=== PATIENT | female | born 1950 | race Caucasian/White ===

== ENCOUNTER 2022-05-09 07:08 | Emergency (ER) | payer MEDICARE, BC, SELFPAY ==
[2022-05-09 07:36] VITALS: BP 145/73; PULSE 79; RESP 16; TEMP 36.5; O2SAT 100; BMI 22.6
[2022-05-09 07:45] VITALS: PULSE 76
[2022-05-09 08:46] LABS: Basophils Percent Auto 0.4 % (0.0-3.0); Eosinophils Percent Auto 2.4 % (0.0-7.0); Hematocrit 38.1 % (33.0-51.0); Hemoglobin* 12.8 gm/dL (12.0-16.0); Lymphocytes Percent Auto 8.5 % (20-44); Mean Corpuscular HGB Conc 34 gm/dL (32-36); Mean Corpuscular Hemoglobin 31 pg (26-34); Mean Corpuscular Volume 92 fL (80-100); Monocytes Percent Auto 11.6 % (0.0-11.0); Neutrophils Percent Auto 76.2 % (42.0-72.0); Platelet Count* 251 K/uL (140-440); RDW Coefficient of Variation % 12.6 % (11.5-15.5); Red Blood Count 4.16 m/uL (4.00-5.20); White Blood Count* 11.54 K/uL (4.50-11.00)
[2022-05-09 09:01] LABS: Chloride* 105 mmol/L (96-114); Potassium* 4.6 mmol/L (3.6-5.1); Sodium* 139 mmol/L (135-149)
[2022-05-09 09:03] LABS: Creatinine* 0.6 mg/dL (0.5-1.5); Est. Creatinine Clearance* 44.41; Estimated Glomerular Filt Rate 94 ml/min
[2022-05-09 09:04] LABS: Blood Urea Nitrogen* 19 mg/dL (7-30); Carbon Dioxide* 30 mmol/L (20-32); Glucose* 91 mg/dL (60-115)
[2022-05-09 09:05] LABS: Calcium* 8.9 mg/dL (8.4-10.6)
[2022-05-09 09:07] LABS: C Reactive Protein* 5.3 mg/dL (0.5-1.0)
--- NOTE | 2022-05-09 09:15 | ED_ITS ---
HPI - General Adult General Chief complaint: Extremity Pain/Injury, Upper Stated complaint: right hand pain,swollen Time Seen by Provider: 05/09/22 08:08 History of Present Illness HPI narrative: 72-year-old female coming in today complaining hand swelling. She noticed it 2 days ago. She states that the hand felt uncomfortable and then started swelling and became hot. She denies any systemic symptoms such as fever, chills, nausea, vomiting. No weakness or rigors. She states that she had a rash about a week ago over her whole body that was treated with steroids. She also had a lesion on the center of that right palm that eventually got better. She is uncertain whether the swelling is associated with the rash but the rash has cleared. She denies any other joint swelling. She denies any history of gout. Related Data Home Medications Medication Instructions Recorded Confirmed amlodipine 2.5 mg tablet mg 05/09/22 celecoxib 200 mg capsule mg 05/09/22 clobetasol 0.05 % topical ointment topical 05/09/22 ibuprofen 05/09/22 Previous Rx's Medication Instructions Recorded cephalexin 500 mg capsule 500 mg PO TID 7 days #21 caps 05/09/22 Allergies Allergy/AdvReac Type Severity Reaction Status Date / Time No Known Drug Allergies Allergy Verified 05/09/22 07:40 Review of Systems Status of ROS: Reports: 10 or more systems reviewed and unremarkable except as noted in History and below [facility] Social History Smoking Status: Never smoker How often do you have a drink containing alcohol: never AUDIT-C Alcohol total score: 0 Non-prescribed substance use: denies use Exam Narrative: Exam Narrative: Well-nourished well-developed patient in no acute distress. Alert and oriented. Answers questions appropriately. Mood and affect are appropriate. Thoughts are goal oriented and rational. No tangential or magical thinking noted. Patient speaks in full sentences without needing to catch their breath. Does not appear ill or toxic. HEENT: Normocephalic atraumatic. Pupils are equally round reactive to light. Extraocular muscles are intact. Conjunctivae are moist without any icterus noted. Extremities: Right dorsal surface of the hand is quite swollen. The hand is red and very hot to touch. She can move at the wrist and at the MCP joints with mild discomfort. She has no tenderness in the palm of the hand. She has no erythema going up the arm. She has a normal radial pulse. Const: Vital Signs, click to edit/add: Vital Signs - 24 hr 05/09/22 07:36 Temperature 97.7 F Pulse Rate [Right Pulse Oximeter] 79 Respiratory Rate 16 Blood Pressure [Le ft Upper Arm] 145/73 H Pulse Oximetry 100 Oxygen Delivery Me thod Room Air Course Course Hospital Course: Did check some lab work today including a CRP which was elevated at just over 5. Vital Signs Vital signs: Initial Vital Signs Temperature 97.7 F 05/09/22 07:36 Temperature Source Temporal Artery Scan 05/09/22 07:36 Pulse Rate 79 05/09/22 07:36 Respiratory Rate 16 05/09/22 07:36 Blood Pressure 145/73 H 05/09/22 07:36 Blood Pressure Mean 97 05/09/22 07:36 Blood Pressure Position Sitting 05/09/22 07:36 Pulse Oximetry 100 05/09/22 07:36 Oxygen Delivery Method 05/09/22 07:36 Vital Signs Temperature 97.7 F 05/09/22 07:36 Pulse Rate 79 05/09/22 07:36 Respiratory Rate 16 05/09/22 07:36 Blood Pressure 145/73 H 05/09/22 07:36 Pulse Oximetry 100 05/09/22 07:36 Oxygen Delivery Method 05/09/22 07:36 Temperature 97.7 F 05/09/22 07:36 Pulse Rate 79 05/09/22 07:36 Respiratory Rate 16 05/09/22 07:36 Blood Pressure 145/73 H 05/09/22 07:36 Pulse Oximetry 100 05/09/22 07:36 Oxygen Delivery Method 05/09/22 07:36 Medical Decision Making MDM Narrative Medical decision making narrative: Hand swelling, pain and erythema consistent with cellulitis. Differential diagnosis does include a septic wrist joint however given the distribution of the erythema and pain I do not think that the infection is confined to the wrist but rather appears to be more consistent with cellulitis. Did give her a dose of IM Rocephin in the ED today, and she will be sent home with oral antibiotics and close follow-up. Medical Records Medical records reviewed: Yes I reviewed the patient's medical records Lab Data Lab results reviewed: Yes I reviewed the patient's lab results Labs: Lab Results 05/09/22 05/09/22 Range/Units 08:30 08:30 WBC 11.54 H (4.50-11.00) K/uL RBC 4.16 (4.00-5.20) m/uL Hgb 12.8 (12.0-16.0) gm/dL Hct 38.1 (33.0-51.0) % MCV 92 (80-100) fL MCH 31 (26-34) pg MCHC 34 (32-36) gm/dL RDW Coeff of [place]etta 12.6 (11.5-15.5) % Plt Count 251 (140-440) K/uL Neut % (Auto) 76.2 H (42.0-72.0) % Lymph % (Auto) 8.5 L (20-44) % [place] % (Auto) 11.6 H (0.0-11.0) % Eos % (Auto) 2.4 (0.0-7.0) % Baso % (Auto) 0.4 (0.0-3.0) % Neut # (Auto) 8.80 H (1.7-7.0) K/uL Lymph # (Auto) 1.00 (0.90-2.90) K/uL [place] # (Auto) 1.30 H (0.00-0.90) K/UL Eos # (Auto) 0.30 (0.00-0.50) K/uL Baso # (Auto) 0.00 (0.00-0.30) K/uL Abs Immat Gran (auto) 0.10 (0.00-0.30) K/uL Sodium 139 (135-149) mmol/L Potassium 4.6 (3.6-5.1) mmol/L Chloride 105 (96-114) mmol/L Carbon Dioxide 30 (20-32) mmol/L BUN 19 (7-30) mg/dL Creatinine 0.6 (0.5-1.5) mg/dL Estimated Creat Clear 44.41 Estimated GFR 94 ml/min Glucose 91 (60-115) mg/dL Calcium 8.9 (8.4-10.6) mg/dL C-Reactive Protein 5.3 H (0.5-1.0) mg/dL Discharge Plan Discharge Clinical Impression: Cellulitis Patient Disposition: Home, Self-Care Condition: Stable Additional Instructions: Take all antibiotics as prescribed. Okay to use ibuprofen or Tylenol as needed for discomfort. If you are not seeing improvement in the next 24-48 hours, return to the emergency room. You should follow-up with your primary care provider on Thursday if you are improving over the weekend. Prescriptions: New cephalexin 500 mg capsule 500 mg PO TID 7 Days Qty: 21 0RF No Action celecoxib 200 mg capsule Label Comments: TAKE 1 CAPSULE (200 MG) BY MOUTH 2 TIMES DAILY WITH MEALS. amlodipine 2.5 mg tablet Label Comments: TAKE ONE TABLET BY MOUTH (2.5MG) ONCE DAILY clobetasol 0.05 % ointment TOPICAL Label Comments: APPLY TO PALM ONE TO TWO TIMES DAILY FOR UP TO 2 WEEKS. ibuprofen Follow Up/Referrals: Michelle Limon DO [Primary Care Provider] - Stand Alone [facility] Inst[facility]
[2022-05-09 09:22] LABS: Slide Review Reflex No
[2022-05-09] MEDS: LIDOCAINE 1% 5 ml (pf) 5 ML VIAL IM (09:38)
[2022-05-09] MEDS: cefTRIAXone 1 GM VIAL IM (09:38)
== END 2022-05-09 09:55 | disposition home or self-care (01) ==
PROVIDERS: Emergency Provider Family Medicine; PCP Family Medicine
DX: L03.113 Cellulitis of right upper limb (principal)
CPT/HCPCS: 36415; 80048; 85025; 86140; 96372; 99283; 99284; J0696

== ENCOUNTER 2022-09-15 10:33 | Emergency (ER) | payer MEDICARE, BC, SELFPAY ==
[2022-09-15] VITALS (22 sets, daily range): BP systolic 133–177; BP diastolic 69–94; PULSE 75–90; RESP 20; TEMP 36.9; O2SAT 94–100; BMI 22.8
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
--- NOTE | 2022-09-15 11:15 | CRLHL7_ITS ---
For Patients: As a result of the Century Cures Act, medical imaging exams and procedure reports are released immediately into your electronic medical record. You may view this report before your referring provider. If you have questions, please contact your health care provider. Indication: VERTIGO Technique: CT of the head without contrast. Coronal and sagittal reformats. Bone and soft tissue windows. Comparison: No prior studies available for comparison at this institution. Findings: No acute intracranial hemorrhage or extra-axial collection. No evidence of acute cortical infarction. No mass effect or midline shift. Normal cerebral volume. The ventricles are normal in size, shape and contour. There is normal cramer and white matter differentiation. The orbital contents are normal. No calvarial fractures. No lytic or sclerotic osseous lesions within the calvarium or skull base. Scalp and other imaged soft tissue structures are normal. Mastoid air cells are clear. Paranasal sinuses are well aerated. Small retention cyst versus polyp in the left maxillary sinus. Leftward deviation of the nasal septum. Ivonne bullosa of the right middle turbinate. Impression: No acute intracranial abnormality. Please note that all CT scans at this facility use dose modulation, iterative reconstruction, and/or weight-based dosing when appropriate to reduce radiation dose to as low as reasonably achievable. Dictated by Isai Schaefer MD @ 09/15/2022 12:22:42 PM (Electronically Signed)
--- NOTE | 2022-09-15 11:15 | CRLHL7_ITS ---
For Patients: As a result of the Century Cures Act, medical imaging exams and procedure reports are released immediately into your electronic medical record. You may view this report before your referring provider. If you have questions, please contact your health care provider. INDICATION: Lumpiness in legs TECHNIQUE: Ultrasound venous duplex lower extremity bilateral. Compression venous exam was performed using babcock-scale, color Doppler, and spectral Doppler imaging. COMPARISON: None. FINDINGS: Sonographic imaging demonstrates the common femoral, deep femoral, superficial femoral, popliteal, posterior tibial and greater saphenous veins to be fully compressible with normal color Doppler blood flow in both lower extremities. There is demonstration of a prominent Gunter cyst within the right popliteal fossa measuring 4.5 x 0.6 x 1.9 centimeters. IMPRESSION: No evidence of deep venous thrombosis. Small Gunter`s cyst in the right popliteal fossa. Dictated by Silverio Cantrell MD @ 09/15/2022 2:37:23 PM (Electronically Signed)
[2022-09-15] MEDS: 0.9 % SODIUM CHLORIDE 1000 ml 1,000 ML IV (11:47)
[2022-09-15 11:54] LABS: Basophils Absolute Auto 0.06 K/uL (0.00-0.30); Eosinophils Absolute Auto 0.16 K/uL (0.00-0.50); Eosinophils Percent Auto 2.7 % (0.0-7.0); Hemoglobin* 12.3 gm/dL (12.0-16.0); Immature Granulocytes Abs Auto 0.01 K/uL (0.00-0.30); Immature Granulocytes Pct Auto 0.2 %; Lymphocytes Percent Auto 19.9 % (20-44); Mean Corpuscular HGB Conc 33 gm/dL (32-36); Mean Corpuscular Hemoglobin 30 pg (26-34); Mean Corpuscular Volume 89 fL (80-100); Monocytes Percent Auto 9.7 % (0.0-11.0); Neutrophils Percent Auto 66.5 % (42.0-72.0); Platelet Count* 295 K/uL (140-440); RDW Coefficient of Variation % 12.6 % (11.5-15.5); Red Blood Count 4.15 m/uL (4.00-5.20); White Blood Count* 5.87 K/uL (4.50-11.00)
[2022-09-15 11:55] LABS: Slide Review Reflex No
[2022-09-15 12:07] LABS: Albumin* 4.1 g/dL (3.3-5.0); Chloride* 106 mmol/L (96-114); Sodium* 140 mmol/L (135-149)
[2022-09-15 12:09] LABS: Creatinine* 0.6 mg/dL (0.5-1.5); Est. Creatinine Clearance* 42.62; Estimated Glomerular Filt Rate 94 ml/min
[2022-09-15 12:10] LABS: Alanine Aminotransferase* 59 U/L (4-35); Alkaline Phosphatase* 73 U/L (40-150); Aspartate Amino Transferase* 44 U/L (12-35); Bilirubin Total* 0.5 mg/dL (0.1-1.5); Blood Urea Nitrogen* 17 mg/dL (7-30); Carbon Dioxide* 29 mmol/L (20-32); Total Protein* 6.4 g/dL (6.0-8.3)
[2022-09-15 12:11] LABS: Calcium* 8.8 mg/dL (8.4-10.6); Glucose* 81 mg/dL (60-115)
[2022-09-15 12:15] LABS: C Reactive Protein* < 0.5 mg/dL (0.5-1.0)
[2022-09-15 12:34] LABS: PCR FLU A Negative PCR FLU A (Negative); PCR FLU B Negative PCR FLU B (Negative); PCR RSV Negative PCR RSV (Negative)
[2022-09-15 12:35] LABS: SARS PCR* Negative SARS-CoV-2 (Negative)
[2022-09-15 12:45] LABS: Erythrocyte SedimentationRate* 7 mm/hr (2-20)
[2022-09-15 15:09] LABS: Appearance Urine Clear (Clear); Bilirubin Urine Negative (Negative); Blood Urine Trace-lysed (Negative); Color Urine Yellow (Yellow); Glucose Urine Negative (Negative); Ketones Urine Negative (Negative); Leukocyte Esterase Urine Negative (Negative); Nitrite Urine Negative (Negative); Protein Urine 1+ (Negative); Urobilinogen Urine 0.2 (0.2-1.0); pH Urine 7.5 (5.0-8.5)
[2022-09-15 15:17] LABS: RBC Urine 0-2 (0-2); Squamous Epithelial Cell Urine Few (None-Few); WBC Urine 0-2 (0-5)
--- NOTE | 2022-09-15 18:08 | ED.NURSE ---
Therapy referral form filled out by Dr. Moser and faxed to [facility], attn: Dr. Limon and to [facility] Medical Records.
== END 2022-09-15 15:25 | disposition home or self-care (01) ==
PROVIDERS: Emergency Provider Family Medicine; PCP Family Medicine
DX: H81.10 Benign paroxysmal vertigo, unspecified ear (principal); Z13.0 Encounter for screening for diseases of the blood and blood-forming organs and certain disorders involving the immune mechanism
CPT/HCPCS: 36415; 70450; 80053; 81001; 85025; 85651; 86140; 87502; 87634; 87635; 93970; 94761; 99284; J7030

== ENCOUNTER 2022-09-30 08:43 | Outpatient (RCR) | payer MEDICARE, BC, SELFPAY ==
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
== END 2023-04-09 23:59 | disposition home or self-care (01) ==
PROVIDERS: PCP Family Medicine; Visit Provider Family Medicine
DX: H81.12 Benign paroxysmal vertigo, left ear (principal); Z51.89 Encounter for other specified aftercare
CPT/HCPCS: 95992; 97162

== ENCOUNTER 2022-11-07 07:23 | Outpatient (CLI) | payer MEDICARE, BC, SELFPAY | END 2022-11-07 07:24 | disposition home or self-care (01) | PROVIDERS: PCP Family Medicine; Visit Provider Family Medicine | DX: M17.11 Unilateral primary osteoarthritis, right knee (principal); M25.561 Pain in right knee | CPT/HCPCS: 64454 ==

== ENCOUNTER 2022-12-02 12:08 | Outpatient (CLI) | payer MEDICARE, BC, SELFPAY | END 2022-12-02 12:09 | disposition home or self-care (01) | LOC: INJ CL 12:09 | PROVIDERS: PCP Family Medicine; Visit Provider Family Medicine | DX: M17.11 Unilateral primary osteoarthritis, right knee (principal); G89.29 Other chronic pain; M25.561 Pain in right knee | CPT/HCPCS: 64624; J2250; J3010 ==

== ENCOUNTER 2022-12-23 08:06 | Outpatient (CLI) | payer MEDICARE, BC, SELFPAY | END 2022-12-23 08:07 | disposition home or self-care (01) | PROVIDERS: PCP Family Medicine; Visit Provider Family Medicine | DX: M54.16 Radiculopathy, lumbar region (principal); M51.36 Other intervertebral disc degeneration, lumbar region | CPT/HCPCS: 62323; J0702; Q9966 ==

== ENCOUNTER 2025-04-01 09:36 | Emergency (ER) | payer MEDICARE, BC, SELFPAY ==
--- OUTSIDE RECORDS SUMMARY | 2025-04-01 09:38 | XMS_ITS | Clinical Summary ---
Author Organization [facility] Address [address] [place] [id number] Care Team Providers Care [employer] Manager Name Role Phone Grover Muniz MD Unavailable [phone] Michelle Limon DO Primary Care Provider [phone] Allergies Active Allergy Reactions Criticality Noted Date Comments Aspirin GI Upset 08/22/2019 Garlic Vomiting High 05/13/2021 Medications clobetasol 0.05% (TEMOVATE 0.05% OINTMENT) 0.05 % ointmentIndica tions:Chronic eczema Apply to palm 1-2 x's day for up to 2 weeks. 60 g 08/28/20 21 Active acetaminophen (TYLENOL) 325 mg tabletIndicati ons:Thickened endometrium Take 1-2 Tablets (325-650 mg) by mouth every 4 hours if needed (mild pain). Max acetaminophen dose: 4000mg in 24 hrs. 100 Tablet 09/08/20 22 Active lidocaine 4 % topical patch Apply on dry, clean, hairless skin every 24 hours. Apply to intact skin to cover most painful area for max 12hr per 24hr period. Active DULoxetine (CYMBALTA) 60 mg Delayed-releas e capsuleIndicat ions:Arthralgi a, unspecified joint,Stress Take 1 Capsule (60 mg) by mouth once daily. 90 Capsule 3 08/18/20 23 Active cyclobenzaprin e (FLEXERIL) 5 mg tabletIndicati ons:Muscle spasm Take 1/2-1 tablet before bed as need for muscle pain. 30 Tablet 04/21/20 24 Active methylPREDNISo lone (Medrol, New,) 4 mg tabletIndicati ons:Acute right-sided low back pain with right-sided sciatica Take by mouth as instructed per packaging. 21 Tablet 04/21/20 24 Active omeprazole 20 mg tabletIndicati ons:Chronic cough Take 1 Tablet (20 mg) by mouth once daily before a meal. 90 Tablet 04/21/20 24 Active amLODIPine (NORVASC) 2.5 mg tabletIndicati ons:HTN (hypertension) TAKE 1 TABLET (2.5 MG) BY MOUTH ONCE DAILY. 90 Tablet 2 06/28/20 24 Active rosuvastatin 5 mg tabletIndicati ons:Agatston CAC score 100-199 TAKE 1 TABLET (5 MG) BY MOUTH AT BEDTIME. 90 Tablet 03/17/20 25 Active rosuvastatin (CRESTOR) 5 mg tabletIndicati ons:Agatston CAC score 100-199 Take 1 Tablet (5 mg) by mouth at bedtime. 90 Tablet 3 12/15/19 24 2024 Discontinued Active Problems Problem Noted Date Diagnosed Date Depression, recurrent 08/06/2023 Thickened endometrium 09/08/2022 Osteopenia 08/11/2018 Overview (09/10/2018): Osteopenia 08/2018, repeat 3-5 years Dextroscoliosis 08/11/2018 Hip pain 10/31/2014 Overview (10/31/2014): Oct 2014: Greater Trochanteric Bursa injection. Displacement of lumbar inter vertebral disc without myelopathy 04/22/2012 Left sided sciatica 04/22/2012 DDD (degenerative disc disease), lumbar 04/07/20 12 Overview (04/07/2012): Multilevel Bunion 10/02/2010 Knee pain 10/01/2010 Shingles 10/01/2010 Resolved Problems Problem Noted Date Diagnosed Date Resolved Date Reactive inflammatory arthritis 08/06/2023 09/28/2023 Encounters Date Type Department Care Team Description 03/15/2025 Refill [facility] [address] [place] [address] Michelle Limon DO Refill Request (Rosuvastatin) from Last 3 Months Immunizations Immunization Administration Dates Next Due COVID-19 vaccine (LoyalBlocks-J&J) PF, MDV Influenza, High-dose Quadriv alent Inactivated 08/04/2022,06/27/2021,06/29/2020 Influenza, IIV3 (Age >=3 years) 09/23/2013,09/08 Influenza, Inactivated AIIV4 (Age 65+ Years) Preserv Free 08/18/2023 Influenza, Inactivated IIV3 (Age 65+ Years) Preserv Free 08/22/2019,08/11/2018 Pneumococcal Poly,23-Valent (Pneumovax) 04/26/20 13 Pneumococcal conj 13-Valent (Prevnar 13) 015 Rabavert 03/01/2020,02/16/2020 Td (Age >=7 Years) 02/19/2005 Tdap 04/08/2023,09/08/2012 Zoster (Shingrix-RZV, recombinant) 03/01/2019, Family History Medical History Relation Name Comments Cancer Brother Maldonado bile duct cance r Arthritis Father Diabetes Mother Heart Disease Mother Hypertension Mother Other Mother Macular degener ation Lung cancer Sister Radha Cancer-breast No Family History Cancer-colon No Family History Relation Name Status Comments Brother Maldonado Father (Age 81) dementia Mother Sister Radha Social History Tobacco Use Types Packs/Day Years Used Date Smoking Tobacco: Never Passive Smoke Exposure: Never Smokeless Tobacco: Never Tobacco Cessation:Counseling Given: Not Answered Alcohol Use Standard Drinks/Week Comments No 0 (1 standard drink = 0.6 oz pur e alcohol) PHQ-2 Answer Date Recorded PHQ-2 TOTAL SCORE 0 08/18/2023 Social Connections Answer Date Recorded Frequency of Communication with Friends and Fami ly 0 07/14/2023 Financial Resource Strain Answer Date R ecorded Difficulty of Paying Living Expenses 3 07/14/2023 Difficulty of Paying Living Expenses Not on file 07/14/2023 Food Insecurity Answer Date Recorded Do you worry your food will run out before you are able to buy more? 1 07/14/2023 Transportation Needs Answer Date Record ed Lack of Transportation (Medical) 1 07/14/2023 Housing Stability Answer Date Recorded What is your housing situation today? 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 Gender Identity Not on file Sexual Orientation Not on file Occupation Industry Job Start Date Job End Date [employer] Not on file Not on file Not on file Obstetrics History Para Term AB IAB SAB Ectopic Multiple Livin g Live Births 0 0 0 0 0 0 0 0 0 0 Last Filed Vital Signs Vital Sign Reading Time Taken Comments Blood Pressure 126/55 04/21/2024 2:13 PM CDT Pulse 76 04/21/2024 2:13 PM CDT Temperature 36.7 C (98.1 F) 08/04/2023 8:34 AM FIELD SALES ENGINEER Respiratory Rate 18 09/08/2022 1:30 PM FIELD SALES ENGINEER Oxygen Saturation 96% 04/21/2024 2:13 PM CDT Inhaled Oxygen Concentration - - Weight 67.7 kg (149 lb 4.8 oz) 10/20/2023 12:55 PM FIELD SALES ENGINEER Height 161.3 cm (5' 3.5) 08/18/2023 8:21 AM FIELD SALES ENGINEER Body Mass Index 26.03 08/18/2023 8:21 AM FIELD SALES ENGINEER Plan of Treatment Upcoming Encounters Date Type Department Care Team (Late st Contact Info) Description 05/09/2025 8:20 AM CDT Office Visit [facility] [address] [place] [address] Michelle Limon DO [address] [place] [address] Health Maintenance Due Date Last Done Comments RSV vaccine for adults or (1 - 1-dose 75+ series) 01/03/2023 COVID-19 vaccine series ( season) 2024 04/01/2022, 08/06/2021, 12/01/2020 BMI (ht and wt on same day) for age 18+ 08/18/2024 08/18/2023, 10/08/2022, 08/12/2022, Additional history exists Medicare Wellness for age 65+ 08/18/2024 08/18/2023, 10/17/2014, 04/26/2013 Depression screening for age 12+ 08/19/2024 08/19/2023, 08/18/2023, 08/18/2023, Additional history exists Influenza Vaccine (#1) 2025 , 08/22/2019, 08/11/2018, Additional history exists Tetanus booster 04/08/2033 04/08/2023, 08/21, 02/19/2005 Pneumococcal series for age 50+ Completed 10/17/2014, 04/26/2013 Zoster (shingles) series for age 50+ Completed 03/01/2019, 11/15/2018 DEXA/DXA scan for age 65+ Completed 2022, 08/26/2018, 04/28/2013 Hepatitis C screening for age 18-79 Completed 08/18/2023 Hepatitis B series for 19+ Aged Out N o longer eligible based on patient's age to complete this topic Procedures Procedure Name Priority Date/Time Associated Diagnosis Comments XR DXA BONE DENSITY 2 SITES AXIAL Routine 08/18/2023 9:51 AM FIELD SALES ENGINEER Osteopenia, unspecified location Other specified disorders of bone density and structure, other site ANTI HCV Routine 08/18/2023 9:50 AM FIELD SALES ENGINEER Need for hepatitis C screening test from Last 3 Months or Most Recently Relevant to Health Maintenance Results * (ABNORMAL) XR DXA BONE DENSITY 2 SITES AXIAL (08/18/2023 9:51 AM FIELD SALES ENGINEER) Anatomical Region Laterality Modality Spine, HIPS, HIPL, HIPR Other Impressions 08/19/2023 9:11 AM FIELD SALES ENGINEER Osteopenia. RECOMMENDATIONS: The National Osteoporosis Foundation recommends pharmacologic treatment for patients with T-scores of -2.5 or less, patients with prior history of fragility fractures, or patients with 10-year probability of greater than 3% at hips or greater than 20% of suffering major osteoporotic fractures. Recommend continued optimization of calcium and vitamin D intake through dietary means and/or supplementation and regular exercise. Consider pharmacologic therapy for osteopenia with increased fracture risk. Follow-up bone density reading in 2 years if therapy initiated to assess therapeutic efficacy. Alexandrea Joiner PA-C [facility] 08/19/2023 Narrative 08/19/2023 9:11 AM FIELD SALES ENGINEER For Patients: Results are automatically released to your [employer] App ([employer]) account once available, in compliance with federal regulations. This means that you may see your results before your provider has had a chance to review them. Please allow 2-3 business days for your provider to comment on the results. XR DXA Bone Mineral Density (BMD) EXAM LOCATION: [facility] [address] [facility] [address] PATIENT NAME: Cassandra Hall DATE OF : 1950 EXAM DATE: 08/18/2023 REQUESTING PROVIDER: Michelle Limon DO GENDER AT : female HEIGHT: 5' 3.5 (08/18/2023) WEIGHT: 145 lb (08/18/2023) MENOPAUSAL STATUS: Postmenopausal RACE/ETHNICITY: White RISK FACTORS: Height Loss (2 inches or more) and White Race CURRENT MEDICATION FOR BONE LOSS: NONE INDICATION: Follow-up of existing osteopenia COMPARISON DATE(S): 2018 DXA scans are compared to prior studies for a patient only when the two (or more) studies were performed on the same scanner. It is not possible to compare data generated on one scanner to data from another because there are not standards in DXA equipment. This applies even if the two scanners are made by the same emergency medical tech. PROCEDURE: Dual-energy x-ray absorptiometry performed with routine technique. Reporting is completed in the form of a T-score. The T-score represents the standard deviation from peak bone mass based on young healthy adult. A Z-score is used for diagnosis in premenopausal women, and for men under the age of 50. FINDINGS: RESULT LUMBAR SPINE L1 - L4 BMD: 1.210 g/cm2 T-Score: + 0.3 Z-Score: + 2.0 Change from prior: None RESULTS FEMUR Left femoral neck BMD: 0.815 g/cm2 T-Score: - 1.6 Z-Score: + 0.3 Change from prior in 2018: Decrease 1.1%. Right femoral neck BMD: 0.754 g/cm2 T-Score: - 2.0 Z-Score: - 0.1 Change from prior in 2018: Decrease 4.8%. Left hip BMD: 0.951 g/cm2 T-Score: - 0.4 Z-Score: + 1.3 Change from prior in 2018: Increase 0.5%. Right hip BMD: 0.749 g/cm2 T-Score: - 2.0 Z-Score: - 0.3 Change from prior in 2018: Decrease 8.0%. WHO criteria: Normal: T-score at or above -1 SD Osteopenia: T-score between -1.1 and -2.4 SD Osteoporosis: T-score at or below -2.5 SD FRAX RISK CALCULATION (USED FOR OSTEOPENIA ONLY): 10-year probability of major osteoporotic fracture: 14.0%. 10-year probability of hip fracture: 3.8%. Michelle Limon DO DEXA Final Resu lt * ANTI HCV (08/18/2023 9:50 AM FIELD SALES ENGINEER) Pathologist [facility] HEPATITIS C ANTIBODY Non-Reacti ve Non-React ольга 08/18/2023 4:21 PM FIELD SALES ENGINEER [facility] Comment:Please note, per www .CDC.gov: If a patient is known to be at high risk of HCV infection, or is symptomatic, and the physician's suspicion of HCV infection is high, HCV RNA testing is often employed and is of diagnostic value, even after an initial negative anti-HCV test result. Blood BLOOD SPECIMEN / Unknown Venipuncture / Unknown 08/18/2023 9:50 AM FIELD SALES ENGINEER 08/18/2023 10:01 AM FIELD SALES ENGINEER Michelle Limon DO SEND OUTS Final Resu lt [facility] [address] [place] [address], from Last 3 Months or Most Recently Relevant to Health Maintenance Insurance MEDICARE PB ONLY [facility] MEDICARE PART A HB ONLY MEDICARE PART B HB ONLY Advance Directives * Full Code (Latest Code Status on File) Date Activated Date Inactivated Comments 09/08/2022 10:40 AM 09/08/2022 4:15 PM Question Answer Comments Code Status Discussion: Reviewed Preferences Care Teams [employer] Manager Relationship Specialty Start Date End Date Michelle Limon DO [address] [place] [address] PCP - General Family Practice 12/31/15 Grover Muniz MD [address] [place] [address] Sports Medicine 04/26/13
--- NOTE | 2025-04-01 09:40 | ED_ITS ---
HPI - General Adult General Date Seen: 04/01/25 Chief complaint: Extremity Pain/Injury, Lower Stated complaint: Pain in right knee 3.5 weeks Time Seen by Provider: 04/01/25 09:40 History of Present Illness HPI narrative: 75 yo F With history of osteoarthritis in her right knee ( see EMR for [facility] clinic visit with Orthopedics 01/19/2023. had injection of Synvisc. It sounds like the patient may have been seeing [facility] since then), synovial cyst in right popliteal space,, history of low back trouble and lumbar radiculopathy. She has a family history of cancer in her siblings but no history of cancer in herself. She has noted for the past 2 or 3 weeks she has had progressively worsening pain in her right knee. Pain is fairly diffuse in the knee including anterior, posterior, medial, and lateral but tends to be worse posteriorly. For the past week do it has been getting worse whenever she is up and around and sometimes even radiates pain up into her thigh and down into her calf. She notes that her knees been getting little bit swelling. It is not been read. She has not had any fever. She leads a very active life. 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 She also lives in her own home (she is a ) and has to do all the [employer] work and lawn care and care for her horses. She has a very active lifestyle. She notes that her knee is been very painful when she has been trying to walk on lately. It has been getting worse since she was having trouble getting into and out of her truck. Therefore her brother encouraged to come to the doctor today. She has been trying not to come to the doctor in hoping her knee would get better without needing a doctor. She has a history of osteoarthritis and has had ?steroid shots? in the past. He used to work but the past couple of shots have not been helpful for her. She also recalls that she had some really bad joint aches and body pain a couple of years ago after a COVID shot and had an extensive workup at [facility] without any clear diagnosis of the potential reaction to the COVID shot. She does not have any history of DVT or PE. She is not having any fever. No chest pain. She has not noticed any redness of her leg or knee. She does wear a compression sleeve around her knee and notes that her knee was quite swollen yesterday after a long day at work but somewhat less swollen this morning after she has been resting in bed overnight. Related Data Home Medications ?Medication ?Instructions ?Recorded ?Confirmed amlodipine 2.5 mg tablet 2.5 mg 05/09/22 10/31/24 acetaminophen 650 mg 650 mg PO Q12H 07/07/2210/22 tablet,extended release (Tylenol Arthritis Pain) Held on 09/15/22. Instructions: per pt. duloxetine 60 mg capsule,delayed 60 mg PO DAILY 10/31/24 release omeprazole 20 mg capsule,delayed mg PO DAILY 10/14/24 10/31/24 release rosuvastatin 5 mg tablet 5 mg PO QPM 10/14/24 5 Previous Rx's ?Medication ?Instructions ?Recorded hydrocodone 5 mg-acetaminophen 325 1 tab PO Q6H PRN pa in #10 tabs 04/01/25 mg tablet Allergies Allergy/AdvReac Type Severity Reaction Status Date / Time aspirin Allergy Verified 10/31/24 08:30 garlic Allergy vomitting Verified 10/31/24 08:30 PFSH [facility] Medical History Synovial cyst of popliteal space ?M71.20 - Synovial cyst of popliteal space [Gunter], unspecified knee (ICD-10) Cat bite of finger ?S61.259A - Open bite of unspecified finger without damage to nail, initial encounter (ICD-10) ?W55.01XA - Bitten by cat, initial encounter (ICD-10) Social History Smoking Status: Never smoker Do you use any of these nicotine containing products: None How often do you have a drink containing alcohol: never AUDIT-C Alcohol total score: 0 Non-prescribed substance use: denies use service: No Exam Const: Vital Signs, click to edit/add: Vital Signs - 24 hr 04/01/25 09:42 Temperature 98.2 F Pulse Rate [Pulse Oximeter] 74 Respiratory Rate 18 Blood Pressure [Ri ght Upper Arm] 150/77 H Pulse Oximetry 98 Oxygen Delivery Me thod Room Air Course Vital Signs Vital signs: Initial Vital Signs Temperature 98.2 F 04/01/25 09:42 Temperature Source Temporal Artery Scan 04/01/25 09:42 Pulse Rate 74 04/01/25 09:42 Pulse Rhythm Regular 04/01/25 09:42 Respiratory Rate 18 04/01/25 09:42 Blood Pressure 150/77 H 04/01/25 09:42 Blood Pressure Mean 101 04/01/25 09:42 Blood Pressure Position Sitting 04/01/25 09:42 Pulse Oximetry 98 04/01/25 09:42 Oxygen Delivery Method Room Air 04/01/25 09:42 Vital Signs Temperature 98.2 F 04/01/25 09:42 Pulse Rate 74 04/01/25 09:42 Respiratory Rate 18 04/01/25 09:42 Blood Pressure 150/77 H 04/01/25 09:42 Pulse Oximetry 98 04/01/25 09:42 Oxygen Delivery Method Room Air 04/01/25 09:42 Temperature 98.2 F 04/01/25 09:42 Pulse Rate 74 04/01/25 09:42 Respiratory Rate 18 04/01/25 09:42 Blood Pressure 150/77 H 04/01/25 09:42 Pulse Oximetry 98 04/01/25 09:42 Oxygen Delivery Method Room Air 04/01/25 09:42 Medical Decision Making MDM Narrative Medical decision making narrative: Very pleasant 75-year-old female presenting to the ER today with a few week history of atraumatic progressively worsening right knee pain with pain radiating proximally and distally from the knee be when it flares up and become severe. She presents to the ER because it is just not tolerable for the past couple of days. X-rays obtained here in the ER negative for any signs of fracture or any sort of pathologic osteoporotic insufficiency fracture. X-rays do show progression of her previously known osteoarthritis. DVT ultrasound is obtained because the pain radiating up and down from her knee and is fortunately negative for DVT. Ultrasound does demonstrate a popliteal cyst which has gotten larger compared to previous ultrasound. Knee exam shows tenderness but no effusion. No redness or warmth. She is not febrile. At this point I do not think she has septic arthritis or gouty arthritis causing her exacerbation of pain. Differential would also include lumbar radiculopathy since the pain does go up and down the leg a little bit but there is no other weakness or numbness, other neurologic symptoms and no flare of her chronic back pain. At this point I do not think she needs MRI of her back. At this point the patient and agree that she is safe for outpatient management. I would recommend close outpatient follow-up with orthopedics. I gave her referral to the [place] [facility] but she asks if she would be better off to see 1 of the ortho clinics in the [facility]. I think seeing any ortho would be reasonable. It sounds like she has had a previous relationship that [facility]. She also questions if she would be better off to see another clinic such as [facility]. I really do not have any information about the services that that clinic would provide. Encouraged to follow up, at least initially, with orthopedist. I will give her a short prescription for Dorr that she can use if needed. We had a detailed discussion about opiate precautions. We would like to avoid Dorr if possible. She will try to stick with Tylenol and ibuprofen as well as ice packs. Precautions for return to the ER reviewed. Imaging Data US venous RLE: Attestation: I have reviewed the pertinent imaging results. My impression: compared to US from 09/15/22 popliteal cyst has enlarged prior measurement: right popliteal fossa measuring 4.5 x 0.6 x 1.9 centimeters. Radiologist's impression: A 7.8 x 1.9 x 3.6 centimeter popliteal cyst right popliteal fossa extending into the right calf. IMPRESSION: Normal venous ultrasound exam. No evidence of deep vein thrombosis within the right lower extremity. Right popliteal cyst XR R knee: Attestation: I have reviewed the pertinent imaging results. Radiologist's impression: Findings/ Impression: Progressive advanced degenerative arthrosis of right knee with near complete reduction of lateral tibiofemoral joint space. Minimal joint effusion. No acute fracture or dislocation. Discharge Plan Discharge Clinical Impression: Gunter cyst Osteoarthritis of right knee Qualifiers: Osteoarthritis type: primary Qualified Code(s): M17.11 - Unilateral primary osteoarthritis, right knee Patient Disposition: Home, Self-Care Condition: Stable Instructions: Knee Pain (ED) Additional Instructions: As we discussed, please follow-up with orthopedic clinic on Thursday or Thursday. To schedule an ER follow-up appointment you can call [phone]. Your x-ray shows signs that you have worsening arthritis. Her ultrasound shows sign that the popliteal cyst in your right knee is also gotten larger. I think the combination of these 2 conditions explains why knee is been hurting so much lately. Please try to rest your knee over the weekend. You can use Tylenol or ibuprofen if needed for pain. Use the prescription pain killer if needed but be careful because prescription pain killers can cause dizziness, drowsiness, constipation, and can be addictive. Prescriptions: New hydrocodone-acetaminophen 5-325 mg tablet 1 tab PO Q6H PRN (Reason: pain) Qty: 10 0RF No Action acetaminophen [Tylenol Arthritis Pain] 650 mg tablet extended release 650 mg PO Q12H rosuvastatin 5 mg tablet 5 mg PO QPM omeprazole 20 mg capsule,delayed release(DR/EC) PO DAILY amlodipine 2.5 mg tablet 2.5 mg Patient Comments: TAKE ONE TABLET BY MOUTH (2.5MG) ONCE DAILY duloxetine 60 mg capsule,delayed release(DR/EC) 60 mg PO DAILY Patient Comments: TAKE 1 CAPSULE (60 MG) BY MOUTH ONCE DAILY. Follow Up/Referrals: Michelle Limon DO [Primary Care Provider, Family Practice] Stand Alone Forms: [employer] Info Instructions
[2025-04-01 09:42] VITALS: BP 150/77; PULSE 74; RESP 18; TEMP 36.8; O2SAT 98; BMI 26.7
--- NOTE | 2025-04-01 11:00 | CRLHL7_ITS ---
For Patients: As a result of the Century Cures Act, medical imaging exams and procedure reports are released immediately into your electronic medical record. You may view this report before your referring provider. If you have questions, please contact your health care provider. Indication: Knee pain. Technique: Right knee 3 views. Comparison: X-ray knee April 2021 Findings/ Impression: Progressive advanced degenerative arthrosis of right knee with near complete reduction of lateral tibiofemoral joint space. Minimal joint effusion. No acute fracture or dislocation. Dictated by Nehemias Blanco MD @ 04/01/2025 11:51:41 AM (Electronically Signed)
--- NOTE | 2025-04-01 11:00 | CRLHL7_ITS ---
For Patients: As a result of the Century Cures Act, medical imaging exams and procedure reports are released immediately into your electronic medical record. You may view this report before your referring provider. If you have questions, please contact your health care provider. CLINICAL HISTORY: Indication pain and swelling right leg; rule out DVT Comparison: Duplex ultrasound evaluation venous system right lower extremity 09/15/2022 TECHNIQUE: A compression venous ultrasound exam was performed of the right lower extremity using babcock-scale imaging, color Doppler and spectral Doppler analysis. FINDINGS: Sonographic imaging of the right lower extremity demonstrates normal compressibility and color Doppler venous blood flow within the common femoral vein, deep femoral vein, and the proximal greater saphenous vein. Within the thigh, the femoral vein is patent and compressible. At a lower level, the popliteal and posterior tibial veins also show normal compressibility and color Doppler venous blood flow. Limited imaging of the contralateral groin demonstrates a normal spectral waveform and color Doppler venous blood flow within the left common femoral vein. A 7.8 x 1.9 x 3.6 centimeter popliteal cyst right popliteal fossa extending into the right calf. IMPRESSION: Normal venous ultrasound exam. No evidence of deep vein thrombosis within the right lower extremity. Right popliteal cyst Dictated by Glen Lucero MD @ 04/01/2025 1:06:35 PM (Electronically Signed)
--- OUTSIDE RECORDS SUMMARY | 2025-04-02 18:22 | XMS_ITS | Clinical Summary ---
Author Organization [employer] [facility] Address [address] [place] [id number] Care Team Providers Care Welfare Administrator Name Role Phone Grover Muniz MD Unavailable [phone] Michelle Limon DO Primary Care Provider [phone] Allergies Active Allergy Reactions Criticality Noted Date [...] Type Department Care Team Description 03/15/2025 Refill [facility] [address] [facility] [address] Michelle Limon DO Refill Request (Rosuvastatin) from Last 3 Months Immunizations Immunization Administration Dates Next Due COVID-19 vaccine (Your [employer]-J&J) PF, MDV Influenza, High-dose Quadriv alent Inactivated [...] on file Legal Sex Female 6:05 AM COMMUNITY NUTRITION EDUCATOR Gender Identity Not on file Sexual Orientation Not on file Occupation Industry Job Start Date Job End Date Months Of [employer] Not on file Not on file [...] 36.7 C (98.1 F) 08/04/2023 8:34 AM COMMUNITY NUTRITION EDUCATOR Respiratory Rate 18 09/08/2022 1:30 PM COMMUNITY NUTRITION EDUCATOR Oxygen Saturation 96% 04/21/2024 2:13 PM CDT Inhaled Oxygen Concentration - - Weight 67.7 kg (149 lb 4.8 oz) 10/20/2023 12:55 PM COMMUNITY NUTRITION EDUCATOR Height 161.3 cm (5' 3.5) 08/18/2023 8:21 AM COMMUNITY NUTRITION EDUCATOR Body Mass Index 26.03 08/18/2023 8:21 AM COMMUNITY NUTRITION EDUCATOR Plan of Treatment Upcoming Encounters Date Type Department Care Team (Late st Contact Info) Description 05/09/2025 8:20 AM CDT Office Visit [facility] [address] [place] [address] Michelle Limon DO [address] [place] [address] Health Maintenance Due Date Last Done Comments [...] 2 SITES AXIAL Routine 08/18/2023 9:51 AM COMMUNITY NUTRITION EDUCATOR Osteopenia, unspecified location Other specified disorders of bone density and structure, other site ANTI HCV Routine 08/18/2023 9:50 AM COMMUNITY NUTRITION EDUCATOR Need for hepatitis C screening test from Last 3 Months or Most Recently Relevant to Health Maintenance Results * (ABNORMAL) XR DXA BONE DENSITY 2 SITES AXIAL (08/18/2023 9:51 AM COMMUNITY NUTRITION EDUCATOR) Anatomical Region Laterality Modality Spine, HIPS, HIPL, HIPR Other Impressions 08/19/2023 9:11 AM COMMUNITY NUTRITION EDUCATOR Osteopenia. RECOMMENDATIONS: The National Osteoporosis Foundation recommends [...] to assess therapeutic efficacy. Alexandrea Joiner PA-C [facility] 08/19/2023 Narrative 08/19/2023 9:11 AM COMMUNITY NUTRITION EDUCATOR For Patients: Results are automatically released to your [employer] account once available, in compliance with federal regulations. This means that you may see your results before your provider has had a chance to review them. Please allow 2-3 business days for your provider to comment on the results. XR DXA Bone Mineral Density (BMD) EXAM LOCATION: [facility] [address] [facility] [address] PATIENT NAME: Cassandra Hall DATE OF : [...] two scanners are made by the same quality assurance manager. PROCEDURE: Dual-energy x-ray absorptiometry performed with routine [...] lt * ANTI HCV (08/18/2023 9:50 AM COMMUNITY NUTRITION EDUCATOR) Pathologist [facility] HEPATITIS C ANTIBODY Non-Reacti ve Non-React ольга 08/18/2023 4:21 PM COMMUNITY NUTRITION EDUCATOR [facility] Comment:Please note, per www .CDC.gov: If a patient is known to be at high risk of HCV infection, or is symptomatic, and the physician's suspicion of HCV infection is high, HCV RNA testing is often employed and is of diagnostic value, even after an initial negative anti-HCV test result. Blood BLOOD SPECIMEN / Unknown Venipuncture / Unknown 08/18/2023 9:50 AM COMMUNITY NUTRITION EDUCATOR 08/18/2023 10:01 AM COMMUNITY NUTRITION EDUCATOR Michelle Limon DO SEND OUTS Final Resu lt [facility] [address] [place] [place] [address], from Last 3 Months or Most Recently Relevant to Health Maintenance Insurance MEDICARE PB ONLY [facility] MEDICARE PART A HB ONLY MEDICARE PART B HB ONLY Advance Directives * Full Code (Latest Code Status on File) Date Activated Date Inactivated Comments 09/08/2022 10:40 AM 09/08/2022 4:15 PM Question Answer Comments Code Status Discussion: Reviewed Preferences Care Teams Welfare Administrator Relationship Specialty Start Date End Date Michelle Limon DO [address] [place] [address] PCP - General Family Practice 12/31/15 Grover Muniz MD [address] [place] [address] Sports Medicine 04/26/13
== END 2025-04-01 13:37 | disposition home or self-care (01) ==
PROVIDERS: Emergency Provider Emergency Medicine; PCP Family Medicine
DX: M71.21 Synovial cyst of popliteal space [Baker], right knee (principal); M17.11 Unilateral primary osteoarthritis, right knee; R22.41 Localized swelling, mass and lump, right lower limb
CPT/HCPCS: 73562; 93971; 99282; 99284

== ENCOUNTER 2025-04-27 10:32 | Emergency (ER) | payer MEDICARE, BC, SELFPAY ==
--- OUTSIDE RECORDS SUMMARY | 2025-04-27 10:35 | XMS_ITS | Clinical Summary ---
Author Organization [employer] [facility] [employer] Address [address] [place] [id number] Care Team Providers Care Collection Supervisor Name Role Phone Grover Muniz MD Unavailable [phone] Michelle Limon DO Primary Care Provider [phone] Allergies Active Allergy Reactions Criticality Noted Date Comments Aspirin GI Upset 08/22/2019 Garlic Vomiting High 05/13/2021 Medications clobetasol 0.05% (TEMOVATE 0.05% OINTMENT) 0.05 % ointmentIndicat ions:Chronic eczema Apply to palm 1-2 x's day for up to 2 weeks. 60 g 1 Active acetaminophen (TYLENOL) 325 mg tabletIndicatio ns:Thickened endometrium Take 1-2 Tablets (325-650 mg) by mouth every 4 hours if needed (mild pain). Max acetaminophen dose: 4000mg in 24 hrs. 100 Tablet 2 Active lidocaine 4 % topical patch Apply on dry, clean, hairless skin every 24 hours. Apply to intact skin to cover most painful area for max 12hr per 24hr period. Active DULoxetine (CYMBALTA) 60 mg Delayed-release capsuleIndicati ons:Arthralgia, unspecified joint,Stress Take 1 Capsule (60 mg) by mouth once daily. 90 Capsule 3 3 Active cyclobenzaprine (FLEXERIL) 5 mg tabletIndicatio ns:Muscle spasm Take 1/2-1 tablet before bed as need for muscle pain. 30 Tablet 4 Active methylPREDNISol one (Medrol, New,) 4 mg tabletIndicatio ns:Acute right-sided low back pain with right-sided sciatica Take by mouth as instructed per packaging. 21 Tablet 4 Active omeprazole 20 mg tabletIndicatio ns:Chronic cough Take 1 Tablet (20 mg) by mouth once daily before a meal. 90 Tablet 4 Active amLODIPine (NORVASC) 2.5 mg tabletIndicatio ns:HTN (hypertension) TAKE 1 TABLET (2.5 MG) BY MOUTH ONCE DAILY. 90 Tablet 2 4 Active rosuvastatin 5 mg tabletIndicatio ns:Agatston CAC score 100-199 TAKE 1 TABLET (5 MG) BY MOUTH AT BEDTIME. 90 Tablet 5 Active Active Problems Problem Noted Date Diagnosed Date [...] Encounters Date Type Department Care Team Description 04/27/2025 Nurse Triage [facility] [address] [place] [address] Michelle Limon, Leg Pain/problem; Neck Pain/problem 04/01/2025 Orders Only [facility] Scanner 1 scan: (1-Ord) [facility], VENOUS [facility] RT, 04/01/2025 04/01/2025 Orders Only [facility] Scanner 1 scan: (1-Ord) [facility], KNEE RT 3V, 04/01/2025 03/15/2025 Refill [facility] [address] [place], [place] [id number] Michelle Limon DO Refill Request (Rosuvastatin) from Last 3 Months Immunizations Immunization Administration Dates Next Due COVID-19 vaccine (Jud-J&J) PF, MDEl Influenza, High-dose Quadriv alent Inactivated 08/04/2022,06/27/2021,06/29/2020 Influenza, [...] on file Legal Sex Female 6:05 AM INSTRUCTIONAL MATERIALS DIRECTOR Gender Identity Not on file Sexual Orientation Not on file Occupation Industry Job Start Date Job End Date [employer] Not on file Not on file Not on file Obstetrics History Para Term AB IAB SAB Ectopic Multiple Livin g Live Births 0 0 0 0 0 0 0 0 0 0 Last Filed Vital Signs Vital Sign Reading Time Taken Comments Blood Pressure 126/55 04/21/2024 2:13 PM CDT Pulse 76 04/21/2024 2:13 PM CDT Temperature 36.7 C (98.1 F) 08/04/2023 8:34 AM INSTRUCTIONAL MATERIALS DIRECTOR Respiratory Rate 18 09/08/2022 1:30 PM INSTRUCTIONAL MATERIALS DIRECTOR Oxygen Saturation 96% 04/21/2024 2:13 PM CDT Inhaled Oxygen Concentration - - Weight 67.7 kg (149 lb 4.8 oz) 10/20/2023 12:55 PM INSTRUCTIONAL MATERIALS DIRECTOR Height 161.3 cm (5' 3.5) 08/18/2023 8:21 AM INSTRUCTIONAL MATERIALS DIRECTOR Body Mass Index 26.03 08/18/2023 8:21 AM INSTRUCTIONAL MATERIALS DIRECTOR Plan of Treatment Upcoming Encounters Date Type Department Care Team (Late st Contact Info) Description 05/09/2025 8:20 AM CDT Office Visit [facility] [address] [place] [address] Michelle Limon DO [address] [place] [address] Health Maintenance Due Date Last Done Comments RSV vaccine for adults or (1 - 1-dose 75+ series) 01/03/2023 COVID-19 vaccine series (2023- season) 2024 04/01/2022, 08/06/2021, 12/01/2020 BMI (ht [...] Procedure Name Priority Date/Time Associated Diagnosis Comments SCAN-ULTRASOUND REPORT 04/01/2025 12:00 AM CDT SCAN-RADIOLOGY REPORT 04/01/2025 12:00 AM CDT XR DXA BONE DENSITY 2 SITES AXIAL Routine 08/18/2023 9:51 AM INSTRUCTIONAL MATERIALS DIRECTOR Osteopenia, unspecified location Other specified disorders of bone density and structure, other site ANTI HCV Routine 08/18/2023 9:50 AM INSTRUCTIONAL MATERIALS DIRECTOR Need for hepatitis C screening test from Last 3 Months or Most Recently Relevant to Health Maintenance Results * SCAN-RADIOLOGY REPORT (04/01/2025 12:00 AM CDT) Anatomical Region Laterality Modality Other us Scanner OTHER Final Result * SCAN-ULTRASOUND REPORT (04/01/2025 12:00 AM CDT) Anatomical Region Laterality Modality Other us Scanner OTHER Final Result * (ABNORMAL) XR DXA BONE DENSITY 2 SITES AXIAL (08/18/2023 9:51 AM INSTRUCTIONAL MATERIALS DIRECTOR) Anatomical Region Laterality Modality Spine, HIPS, HIPL, HIPR Other Impressions 08/19/2023 9:11 AM INSTRUCTIONAL MATERIALS DIRECTOR Osteopenia. RECOMMENDATIONS: The National Osteoporosis Foundation recommends [...] to assess therapeutic efficacy. Alexandrea Joiner PA-C [facility] 08/19/2023 Narrative 08/19/2023 9:11 AM INSTRUCTIONAL MATERIALS DIRECTOR For Patients: Results are automatically released to your [facility] ([employer]) account once available, in compliance with federal regulations. This means that you may see your results before your provider has had a chance to review them. Please allow 2-3 business days for your provider to comment on the results. XR DXA Bone Mineral Density (BMD) EXAM LOCATION: [address] [address] PATIENT NAME: Cassandra Hall DATE OF : 1950 EXAM DATE: 08/18/2023 REQUESTING PROVIDER: Michelle Limon DO GENDER AT : female HEIGHT: 5' 3.5 (08/18/2023) WEIGHT: 145 lb (08/18/2023) MENOPAUSAL STATUS: Postmenopausal RACE/ETHNICITY: White RISK FACTORS: Height Loss (2 inches or more) and White Race CURRENT MEDICATION FOR BONE LOSS: NONE INDICATION: Follow-up of existing osteopenia COMPARISON DATE(S): 2017 DXA scans are compared to prior studies for a patient only when the two (or more) studies were performed on the same scanner. It is not possible to compare data generated on one scanner to data from another because there are not standards in DXA equipment. This applies even if the two scanners are made by the same electrical transmission engineer. PROCEDURE: Dual-energy x-ray absorptiometry performed with routine [...] lt * ANTI HCV (08/18/2023 9:50 AM INSTRUCTIONAL MATERIALS DIRECTOR) HEPATITIS C ANTIBODY Non-Reacti ve Non-React ольга 08/18/2023 4:21 PM INSTRUCTIONAL MATERIALS DIRECTOR [facility] Comment:Please note, per www .CDC.gov: If a patient is known to be at high risk of HCV infection, or is symptomatic, and the physician's suspicion of HCV infection is high, HCV RNA testing is often employed and is of diagnostic value, even after an initial negative anti-HCV test result. Blood BLOOD SPECIMEN / Unknown Venipuncture / Unknown 08/18/2023 9:50 AM INSTRUCTIONAL MATERIALS DIRECTOR 08/18/2023 10:01 AM INSTRUCTIONAL MATERIALS DIRECTOR Michelle Limon DO SEND OUTS Final Resu lt [facility] [address] [place] [address], [place] from Last 3 Months or Most Recently Relevant to Health Maintenance Insurance MEDICARE PB ONLY [facility] MEDICARE PART A HB ONLY MEDICARE PART B HB ONLY Advance Directives * Full Code (Latest Code Status on File) Date Activated Date Inactivated Comments 09/08/2022 10:40 AM 09/08/2022 4:15 PM Question Answer Comments Code Status Discussion: Reviewed Preferences Care Teams Collection Supervisor Relationship Specialty Start Date End Date Michelle Limon DO [address] [place] [address] PCP - General Family Practice 12/31/15 Grover Muniz MD [address] [place] [address] [address] Sports Medicine 04/26/13
[2025-04-27 10:45] VITALS: BP 174/95; PULSE 78; RESP 16; TEMP 36.4; O2SAT 98
--- NOTE | 2025-04-27 10:59 | ED.NECK ---
HPI - Neck Pain/Injury General Date Seen: 04/27/25 Chief Complaint: Neck Injury/Pain Stated Complaint: left side upper neck pain and right leg pain Time Seen by Provider: 04/27/25 10:44 Source: patient Mode of arrival: ambulatory Limitations: no limitations History of Present Illness HPI Narrative: Patient is a 75-year-old female presenting to emergency department for left neck pain and right knee pain. For the knee pain she has a known Gunter's cyst and had a negative DVT ultrasound done here about a month ago for the same pain. She states the pain goes up to her thigh and down to her leg which has been persistent and has also seen Orthopedics for this. She was told she will probably likely need knee replacement for her severe osteoarthritis but she does not think that is what is wrong. Three days ago she also started having left neck pain. Pain seems to be more in the lateral triceps muscle and goes into the back of her neck. Denies any recent injuries. States she has never had any chiropractic treatment before. Denies any facial droop, high droop, numbness, headache or any other neurological deficits. Has full range of motion of her arms. Denies having neck pain like this before. Does not remember any injuries to her neck. States she woke up with the neck pain. No other concerns noted. States she was told to come in by triage nurse for possible blood clot Related Data Home Medications ?Medication ?Instructions ?Recorded ?Confirmed amlodipine 2.5 mg tablet 2.5 mg 05/09/22 04/05/25 acetaminophen 650 mg 650 mg PO Q12H 07/07/22 04/05/25 tablet,extended release (Tylenol Arthritis Pain) Held on 09/15/22. Instructions: per pt. duloxetine 60 mg capsule,delayed 60 mg PO DAILY 09/15/22 04/05/25 release omeprazole 20 mg capsule,delayed mg PO DAILY 10/14/24 04/05/25 release rosuvastatin 5 mg tablet 5 mg PO QPM 10/14/24 04/05/25 Previous Rx's ?Medication ?Instructions ?Recorded hydrocodone 5 mg-acetaminophen 325 1 tab PO Q6H PRN pain #10 tabs 04/01/25 mg tablet Allergies Allergy/AdvReac Type Severity Reaction Status Date / Time aspirin Allergy Verified 04/27/25 10:45 garlic Allergy vomitting Verified 04/27/25 10:45 Review of Systems Narrative: Pertinent systems reviewed and were negative unless stated in HPI PFSH PFS Medical History Synovial cyst of popliteal space ?M71.20 - Synovial cyst of popliteal space [Gunter], unspecified knee (ICD-10) Cat bite of finger ?S61.259A - Open bite of unspecified finger without damage to nail, initial encounter (ICD-10) ?W55.01XA - Bitten by cat, initial encounter (ICD-10) Social History Smoking Status: Never smoker Do you use any of these nicotine containing products: None Second hand tobacco smoke exposure: No How often do you have a drink containing alcohol: never AUDIT-C Alcohol total score: 0 Non-prescribed substance use: marijuana (any form) Non-prescribed substance use details: CBD gummies service: No Exam Narrative: Exam Narrative: Const: Well-nourished, Well-developed, in mild distress Eyes: PERRL, no conjunctival injection, and symmetrical lids HENT: Atraumatic external nose and ears. Moist mucous membranes. Neck: Symmetric, trachea midline, No thyromegaly. CVS: RRR, No murmurs or gallops. Peripheral pulses 2+ and equal in all extremities RESP: Unlabored respiratory effort. Clear to auscultation bilaterally. GI: Nontender/Nondistended, No rebound or guarding. MSK:Extremities w/o deformity, Normal Active ROM, tenderness to palpation of the trapezius muscle just lateral to the left neck. Skin: Warm, Dry. No rashes or lesions. Neuro: Normal Muscle tone, No focal neurological deficits. Psych: Awake, Alert, & Oriented x3. Appropriate mood and affect. Const: Vital Signs, click to edit/add: Vital Signs - 24 hr 04/27/25 10:45 Temperature 97.5 F L Pulse Rate [Pulse Oximeter] 78 Respiratory Rate 16 Blood Pressure [Ri ght Upper Arm] 174/95 H Pulse Oximetry 98 Oxygen Delivery Me thod Room Air Course Vital Signs Vital signs: Initial Vital Signs Temperature 97.5 F L 04/27/25 10:45 Temperature Source Temporal Artery Scan 04/27/25 10:45 Pulse Rate 78 04/27/25 10:45 Respiratory Rate 16 04/27/25 10:45 Blood Pressure 174/95 H 04/27/25 10:45 Blood Pressure Mean 121 H 04/27/25 10:45 Blood Pressure Position Semi-Fowlers 04/27/25 10:45 Pulse Oximetry 98 04/27/25 10:45 Oxygen Delivery Method Room Air 04/27/25 10:45 Vital Signs Temperature 97.5 F L 04/27/25 10:45 Pulse Rate 78 04/27/25 10:45 Respiratory Rate 16 04/27/25 10:45 Blood Pressure 174/95 H 04/27/25 10:45 Pulse Oximetry 98 04/27/25 10:45 Oxygen Delivery Method Room Air 04/27/25 10:45 Temperature 97.5 F L 04/27/25 10:45 Pulse Rate 78 04/27/25 10:45 Respiratory Rate 16 04/27/25 10:45 Blood Pressure 174/95 H 04/27/25 10:45 Pulse Oximetry 98 04/27/25 10:45 Oxygen Delivery Method Room Air 04/27/25 10:45 MDM - Neck Pain/Injury MDM Narrative Medical decision making narrative: Patient is a 75-year-old female presenting for neck pain. I did consider possible arterial dissection causing his pain but she is having no other symptoms and the pain seems to be more lateral to the neck the neck she within the neck. I do not believe CTA is are necessary. This right knee pain has been consistent for and she has been previously seen for it with negative DVTs. Did not believe another ultrasound is necessary as this is very unlikely to be a a blood clot. I will discharge her home with oxycodone and Toradol via instymeds. She is agreeable to this plan. Discharge Plan Discharge Clinical Impression: Gunter cyst Qualifiers: Laterality: right Qualified Code(s): M71.21 - Synovial cyst of popliteal space [Gunter], right knee Neck strain Qualifiers: Encounter type: initial encounter Qualified Code(s): S16.1XXA - Strain of muscle, fascia and tendon at neck level, initial encounter Patient Disposition: Home, Self-Care Condition: Stable Instructions: Cervical Strain (ED) Additional Instructions: Recommend stretching for your neck as this is likely a muscle strain. Take the Toradol and Percocet as needed for pain. The Percocet does have Tylenol in it. Be careful if you take any other Tylenol throughout the day. Return to emergency department for new or worsening symptoms. Continue to follow-up with orthopedics for your right leg pain Prescriptions: No Action acetaminophen [Tylenol Arthritis Pain] 650 mg tablet extended release 650 mg PO Q12H rosuvastatin 5 mg tablet 5 mg PO QPM omeprazole 20 mg capsule,delayed release(DR/EC) PO DAILY amlodipine 2.5 mg tablet 2.5 mg Patient Comments: TAKE ONE TABLET BY MOUTH (2.5MG) ONCE DAILY duloxetine 60 mg capsule,delayed release(DR/EC) 60 mg PO DAILY Patient Comments: TAKE 1 CAPSULE (60 MG) BY MOUTH ONCE DAILY. hydrocodone-acetaminophen 5-325 mg tablet 1 tab PO Q6H PRN (Reason: pain) Qty: 10 0RF Follow Up/Referrals: Michelle Limon DO [Primary Care Provider, Family Practice] Stand Alone Forms: MyHealth Info Instructions
== END 2025-04-27 11:23 | disposition home or self-care (01) ==
PROVIDERS: Emergency Provider Student in an Organized Health Care Education/Training Program; PCP Family Medicine
DX: S16.1XXA Strain of muscle, fascia and tendon at neck level, initial encounter (principal); M71.21 Synovial cyst of popliteal space [Baker], right knee
CPT/HCPCS: 99283

== ENCOUNTER 2025-05-30 09:02 | Outpatient (CLI) | payer MEDICARE, BC, SELFPAY | END 2025-05-30 09:03 | disposition home or self-care (01) | LOC: INJ CL 09:04 | PROVIDERS: PCP Family Medicine; Visit Provider Family Medicine | DX: M54.16 Radiculopathy, lumbar region (principal); M51.369 Other intervertebral disc degeneration, lumbar region without mention of lumbar back pain or lower extremity pain | CPT/HCPCS: 64483; J1100; Q9966 ==